=== PATIENT | female | born 1975 | race Caucasian/White ===

== ENCOUNTER 2019-11-08 15:50 | Emergency (ER) | payer OTHER ==
[~2019-11-08] VITALS: Ht 170.2 cm; Wt 95.3 kg
[~2019-11-08 15:50] MED LIST: ESTRACE0.5 MG PO; HYDROXYZINE HCL25 M1 GT; HYDROXYZINE HCL25 M1 PO; LEVOTHYROXINE0.05 MG; LEVOXYL75 MCG; LORTAB 5-500 T1 EAC1 PO; MEDROL DOSPAK21 TA1 PO; NAPROSYN500 MG PO; PREDNISONE 20 M20 MG PO; PRILOSEC 20 MG20 MG PO; PRILOSEC40 MG PO; REGLAN 10 MG TA10 MG PO; TOBRADEX ST EYE5 ML OP; TRAMADOL 50 MG50 MG; ULTRAM 50MG TAB50 MG PO; VENTOLIN HFA 1818 GM INH; VICODIN 5-5001 EACH PO
[2019-11-08] MEDS ORDERED: IBUPROFEN 800800 M1 PO (17:21)
[2019-11-08 17:47] VITALS: BP 125/80
== END 2019-11-08 17:48 | disposition home or self-care (01) ==
LOC: M.ERS 15:50
DX: S93.491A Sprain of other ligament of right ankle, initial encounter (principal); S93.691A Other sprain of right foot, initial encounter; S50.01XA Contusion of right elbow, initial encounter; E03.9 Hypothyroidism, unspecified; Z90.711 Acquired absence of uterus with remaining cervical stump; Z88.0 Allergy status to penicillin; W01.0XXA Fall on same level from slipping, tripping and stumbling without subsequent striking against object, initial encounter; Y93.89 Activity, other specified; Y92.89 Other specified places as the place of occurrence of the external cause; Y99.8 Other external cause status